=== PATIENT | female | born 1960 | race Caucasian/White ===

== ENCOUNTER → 2016-10-02 | Outpatient (CLI) | payer BC, OTHER ==
[~2016-10-02] MED LIST: ALLOPURINOL 30300 M2 PO; APAP650; ASPIRIN325 PO; B COMPLEX1 EAC1; BENADRYL25 MG; CALCIUM 500 +1 EAC5; CARDIZEM CD120 MG PO; CARDIZEM CD240 MG PO; CARDIZEM LA360 M1 PO; DICLOFENAC SODI75 MG PO; FLECAINIDE ACET50 M1; FLEXERIL; GLUCOSAMINE CH1 EAC9; HYDROCHLOROTHIA25 M2 PO; JINTELI 1 MG-51 EACH; KLOR-CON 1010 MEQ PO; LISINOPRIL10 MG PO; MULTIPLE VITAM1 EACH; PANTOPRAZOLE SO40 M1 PO; PRINIVIL20 MG PO; TAMBOCOR 100 M100 MG PO; TOPROL XL25 MG PO; TOPROL XL50 MG PO; TRAMADOL 50 MG50 MG
[2016-10-02 09:00] LABS: HEMATOCRIT 38.9 % (37.0-47.0); HEMOGLOBIN 12.9 gm/dL (12.0-15.0); MCH 30.5 pg (26.0-34.0); MCHC 33.2 g/dL (28.0-37.0); MCV 91.9 fL (80.0-100.0); RBC 4.23 mil/uL (4.20-5.00); RDW 14.9 % (10.5-14.5); WBC 7.2 thou/uL (4.0-11.0)
[2016-10-02 09:12] LABS: CALCIUM 9.4 mg/dL (8.5-10.1); CREATININE 0.9 mg/dL (0.6-1.0); POTASSIUM 4.3 mmol/L (3.5-5.1)
[2016-10-02 09:14] LABS: ALBUMIN 3.4 g/dL (3.4-5.0); TOTAL BILIRUBIN 0.3 mg/dL (<0.1-1.0); TOTAL PROTEIN 7.5 g/dL (6.4-8.2)
== END ==
LOC: CAT 08:01
PROVIDERS: Internal Medicine Cardiovascular Disease
DX: I48.91 Unspecified atrial fibrillation (principal)

== ENCOUNTER 2016-10-03 12:31 | Inpatient (IN) | payer BC, OTHER ==
--- NOTE | ~2016-10-03 | 2DMMODE ---
[facility] [address] [facility] [place] [address] 2 D/M-MODE ECHOCARDIOGRAM Name: DEBRANATALIE G Room #: 218-P ADM IN ..#: [id number] Admission: 10/03/16 Attend Phys: Boni Thomas Discharge: Date of : 56 Date of Service: 10/04/16 1018 Report #: [id number] THIS REPORT FOR: //name// APPROVED REPORT Study performed: 10/04/2016 08:27:08 EXAM: Comprehensive 2D, Doppler, and color-flow Echocardiogram Patient Location: Bedside Room #: 218 Status: routine Other Information Study Quality: Adequate Indications Pulmonary Embolism Hx: Afib, HTN, morbid obesity. 2D Dimensions RVDd: 37.25 mm LVEF(%): 63.14 (>50%) IVSd: 10.39 (7-11mm) LVOT Diam: 20.46 (18-24mm) LVDd: 52.95 mm PWd: 10.10 (7-11mm) Ascending Ao: 34.19 (22-36mm) LVDs: 34.69 (25-40mm) Aortic Root: 35.85 mm Christie's LVEF: 63.14 % Volumes Left Atrial Volume (Systole) Single Plane 4CH: 42.78 mL Single Plane 2CH: 31.06 mL LA ESV Index: 18.00 mL/m2 Aortic Valve AoV Peak Bry.: 1.72 m/s AO Peak Gr.: 11.84 mmHg LVOT Max P.05 mmHg LVOT Max V: 1.33 m/s KATHRYN Vmax: 2.53 cm2 Mitral Valve E/A Ratio: 0.7 MV Decel. Time: 247.89 ms MV E Max Bry.: 0.83 m/s MV A Bry.: 1.13 m/s MV PHT: 71.89 ms [facility] [place] [place] [address] 2 D/M-MODE ECHOCARDIOGRAM Name: DEBRANATALIE Room #: 218-P [facility]#: [id number] Admission: 10/03/16 Attend Phys: [facility] Discharge: Date of : 56 Date of Service: 10/04/16 1018 Report #: [id number] IVRT: 76.12 ms Pulmonary Valve PV Peak Bry.: 1.03 m/s PV Peak Gr.: 4.20 mmHg Pulmonary Vein P Vein S: 0.58 m/s P Vein A: 0.55 m/s P Vein D: 0.28 m/s P Vein A Dur.: 138.4 msec P Vein S/D Ratio: 2.07 Tricuspid Valve RAP Estimate: 5.00 mmHg Left Ventricle The left ventricle is normal size. There is normal LV segmental wall motion. There is normal left ventricular wall thickness. Left ventricular systolic function is normal. LVEF is >55%. Grade I diastolic dysfunction Right Ventricle The right ventricle is normal size. The right ventricular systolic function is normal. Atria The left atrium size is normal. The right atrium size is normal. Aortic Valve The aortic valve is normal in structure. Trace aortic regurgitation. There is no aortic valvular stenosis. Mitral Valve The mitral valve is normal in structure. No mitral regurgitation. No evidence of mitral valve stenosis. Tricuspid Valve The tricuspid valve is normal in structure. Trace tricuspid regurgitation. Unable to estimated PAP. Pulmonic Valve The pulmonary valve is normal in structure. Trace pulmonic regurgitation. Great Vessels The aortic root is normal in size. The ascending aorta is normal in size. IVC is normal in size and collapses >50% with [facility] [address] [place] [address] 2 D/M-MODE ECHOCARDIOGRAM Name: NATALIE RICHARDSON Room #: 218-P [facility] IN ..#: [id number] Admission: 10/03/16 Attend Phys: [facility]i [facility] Discharge: Date of : 56 Date of Service: 10/04/16 1018 Report #: [id number] inspiration. Pericardium There is no pericardial effusion. <Conclusion> Left ventricular systolic function is normal. LVEF is >55%. Normal LV segmental wall motion. Grade I diastolic dysfunction The aortic valve is normal in structure. There is no aortic valvular stenosis. Trace insufficiency The mitral valve is normal in structure. No mitral insufficiency Pulmonary artery pressure could not be reliably ascertained No pericardial effusion <ELECTRONICALLY SIGNED> By: Jerry Herr MD, [facility] 10/04/16 1018 1018 1018 Jerry Herr MD, FAC /INF
--- NOTE | ~2016-10-03 | HC ---
[facility] [place] [address] CONSULTATION Name: NATALIE RICHARDSON Room #: 218-P ADM IN M.R.#: [id number] Admission: 10/03/16 Attend Phys: Boni Thomas MD Discharge: Date of : 56 Report #: [id number] THIS REPORT FOR: //name// CC: DINO physician/PCP Boni Thomas DATE OF SERVICE: 10/03/2016 REASON FOR CONSULTATION: DVT and pulmonary embolus. IMPRESSION: 1. Deep vein thrombosis and pulmonary embolus. We will start heparin drip. She has been on Pradaxa. This was started on September 25. However, question if the PE and DVT recurred on the Pradaxa. 2. History of paroxysmal atrial fibrillation, was to have an ablation. 3. Hypertension. 4. Obstructive sleep apnea. 5. Osteoarthritis. 6. Menopause with bleeding and on HRT. PLAN: We will place on heparin. We will discuss further with the patient. However, I feel Pradaxa is still a good choice and I feel this may be old clot that we are seeing and we will do followup venous Dopplers in a week to check for progression. We also sent off hypercoagulable panel; however, has been treated and may be abnormal. HISTORY OF PRESENT ILLNESS: A very pleasant 56-year-old female with history of paroxysmal atrial fibrillation on September 25, started on Pradaxa after a RANDALL and had a CT and venous Dopplers, which showed thrombus on the left leg and a PE on right upper lobe. Of interest, she was short of breath last week. She does not feel it was related to her heart and no increasing swelling. She does have on and off swelling, left greater than right leg. ALLERGIES: CEPHALEXIN and LATEX. MEDICATIONS: Include tramadol, diltiazem, flecainide, metoprolol, Protonix, diclofenac, lisinopril, hydrochlorothiazide, allopurinol, aspirin, cyclobenzaprine and . PAST SURGICAL HISTORY: Surgeries in the past include 7 umbilical hernias, colon resection, cholecystectomy and tonsillectomy. SOCIAL HISTORY: Negative tobacco or ETOH. REVIEW OF SYSTEMS: Positive for hypertension, GERD and hyperlipidemia. Positive shortness of breath with rest and with exertion, history of ANNALISE. I [facility] [address] [place] [address] CONSULTATION Name: NATALIE RICHARDSON Room #: 218-P [facility] IN M.R.#: [id number] Admission: 10/03/16 Attend Phys: Boni Thomas MD Discharge: Date of : 56 Report #: [id number] have met her years ago when she had troubles with CPAP. She does not use this at this time. Positive for irregular heartbeats. No dysuria or polyuria. She is in menopause with bleeding. PHYSICAL EXAMINATION: VITAL SIGNS: On examination, temperature 97.9, pulse 69, respirations 18 and BP 135/73. HEENT: Posterior pharynx Mallampati 3. NECK: Trachea midline. LUNGS: Grossly clear. HEART: Regular. ABDOMEN: Bowel sounds present. EXTREMITIES: Showed left greater than right edema. NEUROLOGIC: Alert, oriented. was present. LABORATORY DATA: White count 7.2, hemoglobin 12.9 and platelets 330,000. BUN 15, creatinine 0.9. SGPT 24. CT PE shows right upper lobe pulmonary embolus. INR 1. We will follow closely with you. We will also check a nocturnal desat study. By: 1826 0008 Justina Ventura MD /nt
--- NOTE | ~2016-10-03 | EKG ---
[address] [address] ELECTROCARDIOGRAM REPORT Name: NATALIE RICHARDSON Room #: 218-P ADM IN M.R.#: [id number] Admission: 10/03/16 Attend Phys: Boni Thomas MD Discharge: Date of : 56 Report #: [id number] THIS REPORT FOR: //name// [facility] Test Date: 2016-10-03 Test Time: 15:42:26 Pat Name: NATALIE RICHARDSON Department: Room: 218 P Gender: F Test Lead: Francis WASSERMAN : 1960 Requested By: Mae Barnes Order Number: [id number] MD: Boni Thomas Measurements Intervals [place] Rate: 67 P: 23 CT: 187 QRS: 11 QRSD: 115 T: 32 QT: 447 QTc: 472 Interpretive Statements Sinus rhythm Nonspecific intraventricular conduction delay Nonspecific T abnormalities, anterior leads Compared to ECG 07/16/2014 19:31:52 Intraventricular conduction delay now present T-wave abnormality now present ST (T wave) deviation no longer present Electronically Signed On 10-03-2016 22:05:44 CDT by Boni Thomas [email or web address] <ELECTRONICALLY SIGNED> By: Boni Thomas MD 10/03/16 [id number] Boni Thomas MD /EPI
[2016-10-03 13:30] VITALS: BP 135/73
[2016-10-03 13:36] LABS: HEMATOCRIT 40.1 % (37.0-47.0); HEMOGLOBIN 13.2 gm/dL (12.0-15.0); MCH 29.9 pg (26.0-34.0); MCHC 32.9 g/dL (28.0-37.0); MCV 90.9 fL (80.0-100.0); RBC 4.41 mil/uL (4.20-5.00); RDW 15.1 % (10.5-14.5); WBC 6.8 thou/uL (4.0-11.0)
[2016-10-03 13:43] LABS: APTT 40.8 Seconds (24.5-32.8); PROTIME 10.8 Seconds (9.3-11.4)
[2016-10-03 13:46] LABS: ALBUMIN 3.7 g/dL (3.4-5.0); CALCIUM 9.6 mg/dL (8.5-10.1); CREATININE 1.1 mg/dL (0.6-1.0); MAGNESIUM 1.8 mg/dL (1.8-2.4); POTASSIUM 3.8 mmol/L (3.5-5.1); TOTAL BILIRUBIN 0.2 mg/dL (<0.1-1.0); TOTAL PROTEIN 7.8 g/dL (6.4-8.2)
[2016-10-03 20:00] VITALS: BP 112/71
[2016-10-03 23:18] VITALS: BP 116/74
[2016-10-04 04:24] VITALS: BP 111/68
[2016-10-04 07:05] VITALS: BP 126/79
[2016-10-04 13:20] VITALS: BP 107/64
[2016-10-04 17:38] VITALS: BP 107/64
[2016-10-04 20:54] VITALS: BP 114/71
[2016-10-05 04:11] LABS: ANTITHROMBIN III 106 % (75-135); DIL. RUSSELL VIPER VENOM 118.4 sec (0.0-47.0)
[2016-10-05 04:30] VITALS: BP 105/65
[2016-10-05 08:00] VITALS: BP 107/73
[2016-10-05 11:39] VITALS: BP 98/61
[2016-10-05 20:44] VITALS: BP 113/74
[2016-10-05 23:46] VITALS: BP 81/48; BP 82/52
[2016-10-06 04:08] VITALS: BP 79/43
[2016-10-06 06:42] LABS: BASOPHILS 1.2 % (0.0-2.0); HEMATOCRIT 38.4 % (37.0-47.0); HEMOGLOBIN 12.7 gm/dL (12.0-15.0); LYMPHOCYTES 29.1 % (24.0-44.0); MCH 30.4 pg (26.0-34.0); MCHC 33.1 g/dL (28.0-37.0); MCV 91.7 fL (80.0-100.0); MONOCYTES 7.7 % (1.0-8.0); PLATELET COUNT 329 thou/uL (150-400); RBC 4.18 mil/uL (4.20-5.00); RDW 15.3 % (10.5-14.5); WBC 8.6 thou/uL (4.0-11.0)
[2016-10-06 06:43] LABS: MANUAL DIFF NO
[2016-10-06 06:53] LABS: CALCIUM 9.8 mg/dL (8.5-10.1); CREATININE 1.7 mg/dL (0.6-1.0); POTASSIUM 4.1 mmol/L (3.5-5.1)
[2016-10-06 08:00] VITALS: BP 115/75
[2016-10-06 11:54] VITALS: BP 123/75
[2016-10-06 16:43] VITALS: BP 104/61
[2016-10-06 19:37] VITALS: BP 94/44
[2016-10-06 23:45] VITALS: BP 96/54
[2016-10-07 04:11] VITALS: BP 87/48
[2016-10-07 05:47] VITALS: BP 120/80
[2016-10-07 07:14] VITALS: BP 124/82
[2016-10-07] MEDS ORDERED: ENOXAPARIN120 MG/0.1 SUBQ ×3 (07:28→07:38)
[2016-10-07] MEDS ORDERED: COUMADIN 5 MG TA5 M1 PO (07:28)
[2016-10-07 08:47] LABS: POTASSIUM 4.7 mmol/L (3.5-5.1)
[2016-10-07 08:58] LABS: ALBUMIN 3.2 g/dL (3.4-5.0); CALCIUM 9.3 mg/dL (8.5-10.1); CREATININE 1.1 mg/dL (0.6-1.0); TOTAL BILIRUBIN 0.2 mg/dL (<0.1-1.0); TOTAL PROTEIN 6.5 g/dL (6.4-8.2)
[2016-10-07 10:26] VITALS: BP 124/82
== END 2016-10-07 11:40 | disposition home or self-care (01) | DRG 299 ==
LOC: 2N 12:31
PROVIDERS: Internal Medicine Cardiovascular Disease; Internal Medicine Pulmonary Disease; Nurse Practitioner Gerontology
DX: I82.402 Acute embolism and thrombosis of unspecified deep veins of left lower extremity (principal); I26.99 Other pulmonary embolism without acute cor pulmonale; N17.9 Acute kidney failure, unspecified; D68.61 Antiphospholipid syndrome; Z68.41 Body mass index [BMI] 40.0-44.9, adult; I48.0 Paroxysmal atrial fibrillation; I10 Essential (primary) hypertension; M10.9 Gout, unspecified; N95.0 Postmenopausal bleeding; E66.01 Morbid (severe) obesity due to excess calories; K21.9 Gastro-esophageal reflux disease without esophagitis; E78.5 Hyperlipidemia, unspecified; M19.90 Unspecified osteoarthritis, unspecified site; G47.33 Obstructive sleep apnea (adult) (pediatric); G89.29 Other chronic pain; R11.2 Nausea with vomiting, unspecified; R51 Headache; Z78.0 Asymptomatic menopausal state; Z79.01 Long term (current) use of anticoagulants; Z79.899 Other long term (current) drug therapy; Z91.19 Patient's noncompliance with other medical treatment and regimen; Z90.49 Acquired absence of other specified parts of digestive tract; Z88.1 Allergy status to other antibiotic agents; Z91.040 Latex allergy status
CPT/HCPCS: 10081

== ENCOUNTER → 2020-01-23 | Outpatient (CLI) | payer OTHER ==
[~2020-01-23] MED LIST changes: +COUMADIN 5 MG TA5 M1 PO; +ENOXAPARIN120 MG/0.1 SUBQ
== END ==
LOC: LAB 07:29
PROVIDERS: ATTEND Specialist
DX: Z01.812 Encounter for preprocedural laboratory examination (principal); Z20.828 Contact with and (suspected) exposure to other viral communicable diseases

== ENCOUNTER → 2020-01-28 | Outpatient (CLI) | payer OTHER, MEDICARE ==
[~2020-01-28] VITALS: Ht 167.6 cm; Wt 127.0 kg
[~2020-01-28] MED LIST changes: -ALLOPURINOL 30300 M2 PO; -BENADRYL25 MG; +BENADRYL25 MG PO; +BREO ELLIPTA 11 EACH INH; +CELEBREX50 MG PO; +DULOXETINE HCL30 MG PO; +FLECAINIDE ACE150 MG PO; +LISINOPRIL40 MG PO; +LOPRESSOR50 MG PO; +MAGNESIUM CARB500 GM PO; +NEURONTIN300 MG PO; +OXYCODONE HCL E10 MG PO; +PRILOSEC OTC20 MG PO; +PROAIR HFA8.5 GM INH; +SINGULAIR 10 MG10 M1 PO; +TYLENOL ARTHRI650 MG PO; +VITAMIN B COMP1 EACH PO; +XANAX 0.5 MG0.5 MG PO; +XARELTO20 MG PO; +ZANAFLEX4 M1 PO; +ZYLOPRIM300 MG PO
--- NOTE | ~2020-01-28 | P ---
[facility] [place] [address] PROCEDURE REPORT Name: NATALIE RICHARDSON Room #: REG [facility]#: [id number] Admission: 01/28/20 Attend Phys: Zak Jaramillo Discharge: Date of : 56 Report #: [id number] THIS REPORT FOR: cc: HUGO DE LA ROSA III, MD Physician not on staff Zak Engel MD ~ CC: Zak DE LA ROSA Physician staff DATE OF SERVICE: 01/28/2020 PROCEDURE PERFORMED: Colonoscopy with biopsies. HISTORY OF PRESENT ILLNESS: The patient is a 59-year-old female with chronic diarrhea since 11/05/2019 at that time had an injection in her back for chronic back pain. She averages anywhere from 3 to more than 5 bowel movements a day, at one time had dark stools and Hemoccult testing was reportedly negative. She had a colonoscopy 5 years ago at that time, also had diarrhea. Biopsies at that time were negative for microscopic colitis. She denies any blood in her stools. Family history is known as the patient is adopted. Plan is for colonoscopy. DESCRIPTION OF PROCEDURE: The risks and benefits of the procedure were explained to the patient, those risks including but not limited to bleeding, perforation, the risk of sedation. She understood these risks and gave informed consent. Sedation was given using propofol per anesthesia. Next, a digital rectal exam was initially performed, which was normal. Next, using a standard Olympus colonoscope, the scope was placed in the patient's anus and advanced under direct vision to the cecum. The overall prep was good. The cecum and ileocecal valve were normal in appearance. In the ascending colon, multiple diverticula were noted, otherwise normal. The transverse colon was normal. Multiple diverticula again noted in the descending and sigmoid colon. Random biopsies were obtained to rule out the possibility of microscopic colitis. The rectal mucosa was normal. On retroflexion, small internal hemorrhoids were noted. The scope was then withdrawn. Next, a small to medium sized external hemorrhoids also noted. No evidence of bleeding. Scope was then withdrawn and the procedure terminated. The patient tolerated the procedure well. IMPRESSION: 1. Diverticulosis. 2. Internal and external hemorrhoids. 3. Otherwise, normal colonoscopy. RECOMMENDATIONS: 1. Await biopsy results. [address] [address] PROCEDURE REPORT Name: NATALIE RICHARDSON Room #: REG [facility]s#: [id number] Admission: 01/28/20 Attend Phys: Zak Jaramillo Discharge: Date of : 56 Report #: [id number] 2. Recommend a trial of probiotics. 3. Repeat colonoscopy in 10 years. Thank you for allowing me to participate in her care. By: 1139 2252 Zak Engel MD /nt
--- NOTE | ~2020-01-28 | P ---
[facility] [place] [address] PROCEDURE REPORT Name: NATALIE RICHARDSON [id number] Admission: 01/28/20 Attend Phys: Zak Jaramillo Discharge: Date of : 56 Report #: [id number] THIS REPORT FOR: cc: HUGO DE LA ROSA III, MD Physician not on staff Zak Engel MD ~ CC: Zak De La Rosa DO Physician staff DATE OF SERVICE: 01/28/2020 PROCEDURE PERFORMED: Upper endoscopy with biopsies and esophageal dilation. HISTORY OF PRESENT ILLNESS: The patient is a 59-year-old female with a history of dysphagia. She underwent an upper endoscopy with dilation by myself 5 years ago without much improvement. At that time, was a 48-Cymraes Savary. Biopsies at that time were negative for eosinophilic esophagitis. The patient again is having dysphagia, last time showing grade B esophagitis on upper endoscopy. The patient has been on Prilosec on a daily basis. In general, controls her heartburn quite well. She also has a history of chronic diarrhea for the last several months. DESCRIPTION OF PROCEDURE: The risks and benefits of the procedure were explained to the patient, those risks including but not limited to bleeding, perforation and the risk of sedation. She understood these risks and gave informed consent. Sedation was given using propofol per anesthesia. Next, using a standard Olympus upper endoscope, the scope was placed in the patient's mouth and advanced under direct vision through the esophagus, stomach and into the second portion of the duodenum. The larynx was normal in appearance. The esophagus was normal throughout. The GE junction was normal. No evidence of stricture or esophagitis was noted. Overall, the gastric mucosa was normal. The pylorus was normal and patent. The duodenal bulb, first and second portion were all normal. Biopsies were obtained to rule out the possibility of celiac sprue. The scope was then brought back up into the patient's stomach and a Savary guidewire was inserted through the scope, leaving the guidewire in place. Next, a 51-Cymraes Savary dilation of the esophagus was then performed without difficulty. The wire and dilator removed. The scope was reintroduced into the patient's stomach. There was no evidence of mucosal tear after dilation. The scope was then withdrawn and the procedure terminated. The patient tolerated the procedure well. IMPRESSION: Normal upper endoscopy. RECOMMENDATIONS: [facility] [address] [place] [address] PROCEDURE REPORT Name: DEBRANATALIE Room #: REG CL Guzman#: [id number] Admission: 01/28/20 Attend Phys: Zak Jaramillo Discharge: Date of : 56 Report #: [id number] 1. Await biopsy results. 2. Observe the patient post-dilation. 3. If dysphagia continues, consider esophageal manometry or further workup. 4. Continue PPI therapy. Thank you for allowing me to participate in her care. By: 1115 2225 Zak Engel MD /vahid
--- NOTE | 2020-01-30 16:06 | PATH ---
[facility] [address] [address] PATHOLOGY RPT PROCEDURE Name: NATALIE AVELAR Room #: REG [facility] Sofiya.#: [id number] Admission: 01/28/20 Date of : 56 Discharge: Report #: [id number] Path Case #: [id number] [facility] Accession Number: [id number] . 01 Material submitted: . PART A: duodenum - DUODENAL BIOPSY R/O SPURE, HX DIARRHEA PART B: colon - RANDOM COLON BIOPSY R/O MICROSCOPIC COLITIS . 01 Clinical history: . DIARRHEA . 02 Diagnosis: A. Small bowel mucosa, duodenum, rule out sprue, endoscopic biopsy: - No diagnostic abnormalities present. - Negative for villous blunting or increase in intraepithelial lymphocytes. . B. Large intestinal mucosa, random colon, rule out microscopic colitis, endoscopic biopsy: - Mild focal active cryptitis. - Negative for dysplasia or malignancy. (IUV:pit 01/30/2020) QTP 01/30/2020 1256 Local . 02 Comment: The differential diagnosis includes a reaction to the bowel preparation procedure, medication or drug induced colitis, mild self-limited episode of acute colitis. Please correlate clinically. (IUV:pit 01/30/2020) . 02 Electronically signed: . Lizzie Em MD, Pathologist NPI- [id number] . 01 Gross description: . A. Received in formalin labeled "Natalie Avelar, duodenal BX rule out sprue" are multiple house-brown soft tissue fragments measuring in aggregate 0.8 x 0.4 x 0.1 cm. The specimen is submitted entirely in A1. . B. Received in formalin labeled "Natalie Avelar, random colon BX rule out microscopic colitis" are multiple house-brown soft tissue fragments measuring in aggregate 1.8 x 0.5 x 0.1 cm. The specimen is submitted entirely in B1. ([facility]; 01/29/2020) [facility] 01/29/2020 1700 Local . 02 Pathologist provided ICD-10: K62.89, R19.[address] [address] PATHOLOGY RPT PROCEDURE Name: NATALIE AVELAR Room #: REG [facility].#: [id number] Admission: 01/28/20 Date of : 56 Discharge: Report #: [id number] Path Case #: [id number] . 02 [facility] . [id number], [id number] Specimen Comment: A courtesy copy of this report has been sent to [phone], [phone] Specimen Comment: [phone] Specimen Comment: Report sent to / DR DE LA ROSA Performed at: [address], [place] [id number] MD Fidencio Terrell MD Phone: [phone] Performed at: [address] [id number] MD Lizzie Em MD Phone: [phone]
== END | disposition home or self-care (01) ==
LOC: GI 08:09
PROVIDERS: ATTEND Specialist
DX: K52.9 Noninfective gastroenteritis and colitis, unspecified (principal); K64.8 Other hemorrhoids; K57.30 Diverticulosis of large intestine without perforation or abscess without bleeding; R13.10 Dysphagia, unspecified; K44.9 Diaphragmatic hernia without obstruction or gangrene; K63.89 Other specified diseases of intestine; K31.89 Other diseases of stomach and duodenum; F41.9 Anxiety disorder, unspecified; F32.9 Major depressive disorder, single episode, unspecified; I48.91 Unspecified atrial fibrillation; I10 Essential (primary) hypertension; E78.5 Hyperlipidemia, unspecified; M19.90 Unspecified osteoarthritis, unspecified site; J44.9 Chronic obstructive pulmonary disease, unspecified; G47.30 Sleep apnea, unspecified; M10.9 Gout, unspecified; E78.00 Pure hypercholesterolemia, unspecified; Z90.49 Acquired absence of other specified parts of digestive tract; Z98.890 Other specified postprocedural states; Z79.899 Other long term (current) drug therapy
CPT/HCPCS: 62110; 62900